=== PATIENT | female | born 1960 | race American Indian/Alaskan Native ===

== ENCOUNTER 2017-06-20 09:31 | Outpatient (CLI) | payer OTHER ==
--- NOTE | 2017-06-20 11:32 | XRay Report ---
XRAY RIGHT SHOULDER THREE VIEWS: 06/20/17 09:31:00 CLINICAL: Pain. FINDINGS: Mild osteopenia. Normal glenohumeral alignment and mild glenohumeral joint arthritis with a small inferior osteophyte. Normal AC joint. A prominent subacromial spur. No fracture or dislocation. No bone lesion. Normal soft tissues. IMPRESSION: A prominent subacromial spur suggests possible rotator cuff impingement. Mild glenohumeral joint arthritis.
== END 2017-06-20 09:32 | disposition home or self-care (01) ==
LOC: SPVIMAG 09:31
PROVIDERS: ATTEND Orthopaedic Surgery Sports Medicine
DX: M19.011 Primary osteoarthritis, right shoulder (principal); M85.811 Other specified disorders of bone density and structure, right shoulder